=== PATIENT | female | born 1985 | race Caucasian/White ===

== ENCOUNTER 2020-12-08 06:33 | Inpatient (IN) | payer MEDICAID, SELFPAY ==
[2020-12-08] VITALS (22 sets, daily range): BP systolic 107–150; BP diastolic 50–89; PULSE 61–138; RESP 16; TEMP 36.4–36.7; O2SAT 100; BMI 34.0
--- NOTE | 2020-12-08 06:40 | PM.IMHP ---
H&P: HPI History of Present Illness Date/Time: 12/08/20 06:40 35-year-old 4 para 2 with an EDC of 712 21 presents at 40 weeks gestation for induction of labor. She had group B strep in her urine on admission and will be thus treated. The has been otherwise uncomplicated Chief Complaint: induction of labor at term with group B strep Review of Systems Review of Systems: All systems reviewed & are unremarkable except as noted in HPI and below Meds Home Medications and Allergies Allergies Allergy/AdvReac Type Severity Reaction Status Date / Time No Known Allergies Allergy Unverified 02/27/11 00:45 Exam Const: General: no acute distress Eyes: General: appearance normal, both eyes and all related structures Neck: Neck: supple and no JVD Thyroid: thyroid normal Resp: Effort & Inspection: normal respiratory effort Auscultation: clear to auscultation bilaterally Cardio: Rate: regular rate Rhythm: regular rhythm GI: Inspection: non-distended GI Palp: Yes Soft to palpation, No Tenderness to palpation present (GI) and No Guarding due to palpation present (GI) Auscultation: normal bowel sounds : External Female Exam: normal external appearance Speculum Exam - Vagina: normal appearance of the vagina Speculum Exam - Cervix: normal appearance of the cervix ( cervix 4-5 cm. heart tones are reassuring) Skin: General skin exam: no rashes or lesions noted Extrem: General: normal to inspection and no edema Psych: Mental Status: mental status grossly normal Affect: normal affect Assessment and Plan Additional Plan impression: Term with group B strep in her urine and favorable cervix Plan: Medical induction labor. Spontaneous vaginal delivery is expected. Group B strep prophylaxis will be undertaken
[2020-12-08 07:15] LABS: Basophils Percent Auto 0.4 % (0.2-1.2); Eosinophils Absolute Auto 0.1 K/mm3 (0-0.3); Eosinophils Percent Auto 0.8 % (0-4.4); Hematocrit 34.9 % (37.0-47.0); Hemoglobin 11.2 g/dL (12.0-15.0); Immature Granulocyte Absolute 0.03 K/mm3 (0.00-0.031); Immature Granulocyte Percent A 0.4 % (0-0.5); Lymphocytes Absolute Auto 1.77 K/mm3 (0.9-3.2); Lymphocytes Percent Auto 23.4 % (18.3-44.2); Mean Corpuscular HGB Conc 32.1 g/dl (32-36); Mean Corpuscular Hemoglobin 23.4 pg (26-34); Mean Corpuscular Volume 72.9 fl (80-100); Mean Platelet Volume 9.9 fl (7.4-10.4); Monocytes Absolute Auto 0.4 K/mm3 (0.1-0.6); Monocytes Percent Auto 5.4 % (2.6-8.5); Neutrophils Absolute Auto 5.3 K/mm3 (1.3-6.7); Neutrophils Percent Auto 69.6 % (45.5-73.1); Platelet Count Result 360 k/mm3 (150-375); Red Blood Count 4.79 M/mm3 (4.2-5.4); Red Cell Distribution Width 20.5 % (11.5-14.5); White Blood Count 7.6 K/mm3 (4.5-10.0)
[2020-12-08] MEDS: LACTATED RINGERS 1,000 ML 125 ML IV CONT (07:17)
[2020-12-08] MEDS: AMPICILLIN 2 GM/NS 100 ML 2 GM/100 ML BAG IVPB (07:18)
--- NOTE | 2020-12-08 07:25 | LDADM ---
This patient, Nikki Kruse, was admitted to Labor/Delivery/Recovery 103 on 12/08/20 at 06:33. Plans for labor, pain management and were discussed with patient. Patient/family oriented to hospital policies and general routines including ID bracelet, bed and alarms, visiting hours, pain management, procedures, bathroom and other care routines, personal items, smoking policy, room service/diet and guest tray routines, security routines, and visiting hours. Patient/Family are encouraged to report perceived risks to care and to ask questions if they do not understand what they are told or what they should do. See OBIX for further documentation.
--- NOTE | 2020-12-08 07:55 | P.PNAN_ITS ---
Anes - Eval Pre Procedure Procedure: labor epidural Date/Time: 12/08/20 07:55 Surgeon: patrick cole Preop Diagnosis: pain during labor Pre Op Diagnosis: induction of labor Patient Data Age: 35 Gender: F Height: 1.6 m Weight: 87 kg Allergies Allergy/AdvReac Type Severity Reaction Status Date / Time No Known Allergies Allergy Unverified 02/27/11 00:45 Laboratory Tests 12/08/20 12/08/20 07:07 07:07 WBC 7.6 K/mm3 K/mm3 (4.5-10.0) RBC 4.79 M/mm3 M/mm3 (4.2-5.4) Hgb 11.2 g/dL L g/dL (12.0-15.0) Hct 34.9 % L % (37.0-47.0) MCV 72.9 fl L fl (80-100) MCH 23.4 pg L pg (26-34) MCHC 32.1 g/dl g/dl (32-36) RDW 20.5 % H % (11.5-14.5) Plt Count 360 k/mm3 k/mm3 (150-375) MPV 9.9 fl fl (7.4-10.4) Immature Gran % (Auto) 0.4 % % (0-0.5) Neut % (Auto) 69.6 % % (45.5-73.1) Lymph % (Auto) 23.4 % % (18.3-44.2) [place] % (Auto) 5.4 % % (2.6-8.5) Eos % (Auto) 0.8 % % (0-4.4) Baso % (Auto) 0.4 % % (0.2-1.2) Lymph # (Auto) 1.77 K/mm3 K/mm3 (0.9-3.2) [place] # (Auto) 0.4 K/mm3 K/mm3 (0.1-0.6) Eos # (Auto) 0.1 K/mm3 K/mm3 (0-0.3) Baso # (Auto) 0.0 K/mm3 K/mm3 (0.0-0.1) Abs Immat Gran (auto) 0.03 K/mm3 K/mm3 (0.00-0.031) Absolute Neuts (auto) 5.3 K/mm3 K/mm3 (1.3-6.7) Absolute Nucleated RBC 0.0 K/mm3 K/mm3 (0.0-0.012) Nucleated RBC % 0.0 % % (0.0-0.2) RPR Pending Patient hx anesthesia problems: none Family hx anesthesia problems: none PMFSH Social History Social History Smoking status: Never smoker Substance use: never Gender identity (if verbalized by the patient): Female Sexual Orientation (if Verbalized by the Patient): Straight or Heterosexual Spiritual care concerns: No Exam Day of Procedure 12/08/20 07:55
--- NOTE | 2020-12-08 09:55 | PM.OBPRVD ---
OB - Delivery Note Procedure Delivery date: 12/08/20 Procedure: mil/gbs proph Intrapartal events: None Induction method: AROM Delivery monitor: external FHT Route of delivery: Episiotomy description: None Laceration Description: None Specimen: No Quantitative Blood Loss (ml): 58 Disposition: floor Narrative: gbs rx x 1 Baby Date of : 12/08/20 Time of : 09:48 Weeks of gestation at delivery: 40 Infant gender: Male presentation: vertex position: Right Occiput Anterior Placenta delivery description: Spontaneous cord vessel description: 3 Vessels score one minute: 9 score five minutes: 9
[2020-12-08] MEDS: OXYTOCIN 30 UNITS/NS 500 ML 30 UNITS/500 ML BAG IV CONT (10:01)
[2020-12-08 10:05] LABS: Rapid Plasma Reagin Non-Reactive (NonReactive)
[2020-12-08] MEDS: BENZOCAINE 20% AER SPR (*SP) 56 GM CAN 1 SPRAY TOPICAL (12:00)
[2020-12-08] MEDS: WITCH HAZEL 40 PADS 1 PAD TOPICAL (12:00)
[2020-12-08] MEDS: IBUPROFEN 600 MG TABLET PO ×2 (12:03→19:55)
--- NOTE | 2020-12-08 13:45 | PC.NURSE ---
Mother called out for assist with feeding, reporting is sleepy and spitty. This is mother's 3rd child to breast feeding. is able to freely thrust tongue past gum ridge, both lips flange easily. Skin is intact on both nipples, no redness and bruising noted. Reviewed infant feeding cues, frequencies, duration of feedings, feeding elimination flow sheet, and signs of adequate intake. Demonstrated stimulation techniques to wake for feeding. Assisted with to breast. Reviewed positioning/alignment in cross cradle, holding breast in ?U? hold and guided asymmetrical latch on. Infant able to latch correctly. nursed eagerly, with steady draws and occasional swallowing for bursts followed with pausing. Suggested mother stimulate while feeding to increase stimulate, increase intake and to assist with maintaining deep latch. Reviewed signs of a correct latch, effective nursing and suck swallow ratio. Infant would slip to shallow latch, mother reports tenderness. Demonstrated how to adjust latch more deeply while feeding. Mother reports she can feel change in latch and has no tenderness. Nipple care reviewed of lanolin after feedings, warm compresses as needed. Instructed mother to call out for RN assistance if she is unable to latch infant for feeding or she has discomfort with nursing.
[2020-12-09 03:05] VITALS: BP 127/68; PULSE 72; RESP 16; TEMP 36.6
[2020-12-09] MEDS: IBUPROFEN 600 MG TABLET PO ×2 (03:15→16:25)
[2020-12-09 05:49] LABS: Hematocrit 32.4 % (37.0-47.0); Hemoglobin 10.1 g/dL (12.0-15.0)
--- NOTE | 2020-12-09 07:23 | PM.OBPNVD ---
OB - PN: Subj Subjective Date/time seen: 12/09/20 07:23 Patient comments: no complaints and pain well controlled baby status: doing well OB - PN: Obj Data Labs CBC & Chem 7: 12/09/20 03:20 Labs: Laboratory Results - last 24 hr 12/08/20 12/08/20 12/08/20 07:07 07:07 07:07 WBC 7.6 RBC 4.79 Hgb 11.2 L Hct 34.9 L MCV 72.9 L MCH 23.4 L MCHC 32.1 RDW 20.5 H Plt Count 360 MPV 9.9 Immature Gran % (Auto) 0.4 Neut % (Auto) 69.6 Lymph % (Auto) 23.4 [place] % (Auto) 5.4 Eos % (Auto) 0.8 Baso % (Auto) 0.4 Lymph # (Auto) 1.77 [place] # (Auto) 0.4 Eos # (Auto) 0.1 Baso # (Auto) 0.0 Abs Immat Gran (auto) 0.03 Absolute Neuts (auto) 5.3 Absolute Nucleated RBC 0.0 Nucleated RBC % 0.0 RPR Non-reactive Blood Type B Positive Antibody Screen Negative 12/09/20 03:20 WBC RBC Hgb 10.1 L Hct 32.4 L MCV MCH MCHC RDW Plt Count MPV Immature Gran % (Auto) Neut % (Auto) Lymph % (Auto) [place] % (Auto) Eos % (Auto) Baso % (Auto) Lymph # (Auto) [place] # (Auto) Eos # (Auto) Baso # (Auto) Abs Immat Gran (auto) Absolute Neuts (auto) Absolute Nucleated RBC Nucleated RBC % RPR Blood Type Antibody Screen OB - PN A/P Plan day: 1 Plan: routine care Time Spent With Patient Time: Total time spent is greater than 50% in coordination of care (as documented) at patient's floor/unit and/or counseling patient: Time with patient: less than 15 minutes Review of Systems Review of Systems: All systems reviewed & are unremarkable except as noted in HPI and below Exam Const: General: no acute distress Eyes: General: appearance normal, both eyes and all related structures Neck: Neck: supple and no JVD Thyroid: thyroid normal Resp: Effort & Inspection: normal respiratory effort Auscultation: clear to auscultation bilaterally Cardio: Rate: regular rate Rhythm: regular rhythm GI: Inspection: non-distended GI Palp: Yes Soft to palpation, No Tenderness to palpation present (GI) and No Guarding due to palpation present (GI) Auscultation: normal bowel sounds : General: Yes bladder normal to palpation External Female Exam: normal external appearance Speculum Exam - Vagina: normal vaginal discharge and No vaginal bleeding Speculum Exam - Cervix: nontender Bimanual exam- vagina & uterus: bladder normal to palpation and No Cervical tenderness present OB/external & speculum: No vaginal bleeding Skin: General skin exam: no rashes or lesions noted Extrem: General: normal to inspection and no edema Psych: Mental Status: mental status grossly normal Affect: normal affect
[2020-12-09 08:20] VITALS: BP 114/74; PULSE 76; RESP 16; TEMP 36.8; O2SAT 99
--- NOTE | 2020-12-09 09:00 | PC.NURSE ---
Consult with pt., mother mother reports infant is eagerly latching without difficulties or discomfort. She is feeding as required and waking infant to feed if needed. is currently meeting outcomes for weight, output, jaundice and feeding frequencies. Requested mother call out for assist as needed.
[2020-12-09 09:30] VITALS: PULSE 76; RESP 16; O2SAT 99
[2020-12-09] MEDS: DOCUSATE SODIUM 100 MG CAPSULE PO ×2 (11:34→16:25)
[2020-12-09] MEDS: TETANUS,DIPHTHERIA,AC PERTUSSIS ADULT (0.5 ML) BOOSTRIX IM (11:36)
[2020-12-09] MEDS: MULTIVIT/MIN/PREN/FOL AC/IRON TABLET 1 TAB PO (11:36)
[2020-12-09 19:35] VITALS: BP 112/64; PULSE 65; RESP 16; TEMP 36.8
--- NOTE | 2020-12-10 06:12 | PM.DS ---
DS: Admitting Diagnosis Admitting Diagnosis Admitting Diagnosis: term iup/gbs DS: Summary Hospital Course Hospital Course: The patient was admitted for induction of labor. She was term with advanced cervical dilatation and positive group B strep. She received 1 dose of group B strep prophylaxis. She underwent spontaneous vaginal delivery which was unremarkable. Her hospital course was unremarkable. For 48 hours stay she remained afebrile. She was up, walking, generally without complaints. Time Spent with Patient Time attestation: Total time spent providing and/or coordinating discharge services: Exam Const: General: no acute distress Eyes: General: appearance normal, both eyes and all related structures Neck: Neck: supple and no JVD Thyroid: thyroid normal Resp: Effort & Inspection: normal respiratory effort Auscultation: clear to auscultation bilaterally Cardio: Rate: regular rate Rhythm: regular rhythm GI: Inspection: non-distended GI Palp: Yes Soft to palpation, No Tenderness to palpation present (GI) and No Guarding due to palpation present (GI) Auscultation: normal bowel sounds : General: Yes bladder normal to palpation External Female Exam: normal external appearance Speculum Exam - Vagina: normal vaginal discharge and No vaginal bleeding Speculum Exam - Cervix: nontender Bimanual exam- vagina & uterus: bladder normal to palpation and No Cervical tenderness present OB/external & speculum: No vaginal bleeding Skin: General skin exam: no rashes or lesions noted Extrem: General: normal to inspection and no edema Psych: Mental Status: mental status grossly normal Affect: normal affect Discharge Plan Discharge Attending physician on discharge: Mathew Ponce Discharging Clinician: Mtahew Ponce Patient Disposition: Home, Self-Care Activity: may shower, no straining and pelvic rest Diet: heart healthy Wound Care Instructions: follow printed instructions Patient Instructions: Antibiotic Form Stand Alone Forms: General Discharge Information Follow-up/Referrals: Mathew Ponce MD [Physician] - Discharge Medications: Continued PNV [id number] [] 28 mg iron- 800 mcg Tablet 1 tablet PO DAILY RF: 0 Iron (ferrous sulfate) 325 mg PO DAILY RF: 0 Date of admission: 12/08/20 06:33 Primary Care Provider: PHYSICIAN[employer] Admitting Provider: Mathew Ponce Attending physician on admission: Mathew Ponce Condition: Stable
--- NOTE | 2020-12-10 06:15 | PM.OBPNVD ---
OB - PN: Subj Subjective Date/time seen: 12/10/20 06:15 Patient comments: no complaints and pain well controlled baby status: doing well and nursing well OB - PN: Obj Data Labs CBC & Chem 7: 12/09/20 03:20 OB - PN A/P Plan day: 2 Plan: routine care, discharge home and follow up 6 weeks Time Spent With Patient Time: Total time spent is greater than 50% in coordination of care (as documented) at patient's floor/unit and/or counseling patient: Time with patient: less than 15 minutes Review of Systems Review of Systems: All systems reviewed & are unremarkable except as noted in HPI and below Exam Const: General: no acute distress Eyes: General: appearance normal, both eyes and all related structures Neck: Neck: supple and no JVD Thyroid: thyroid normal Resp: Effort & Inspection: normal respiratory effort Auscultation: clear to auscultation bilaterally Cardio: Rate: regular rate Rhythm: regular rhythm GI: Inspection: non-distended GI Palp: Yes Soft to palpation, No Tenderness to palpation present (GI) and No Guarding due to palpation present (GI) Auscultation: normal bowel sounds : General: Yes bladder normal to palpation External Female Exam: normal external appearance Speculum Exam - Vagina: normal vaginal discharge and No vaginal bleeding Speculum Exam - Cervix: nontender Bimanual exam- vagina & uterus: bladder normal to palpation and No Cervical tenderness present OB/external & speculum: No vaginal bleeding Skin: General skin exam: no rashes or lesions noted Extrem: General: normal to inspection and no edema Psych: Mental Status: mental status grossly normal Affect: normal affect
[2020-12-10 07:35] VITALS: BP 125/82; PULSE 71; RESP 16; TEMP 36.8; O2SAT 100
[2020-12-10 08:00] VITALS: PULSE 71; RESP 16; O2SAT 100
--- NOTE | 2020-12-10 09:00 | PC.NURSE ---
Mother is able to independently latch infant with appropriate positioning/alignment. She denies any nipple discomfort, is feeding as required and waking to feed if needed. has had at least 8 effective feedings in the past 24 hours, and is currently meeting outcomes for weight, output, jaundice and feeding frequencies. Mother states she feels confident to continue effective at home. Reviewed transition to breast milk, signs of adequate intake, and engorgement/relief. Instructed to call ICP if intake/output less than required. Reviewed regular medications mother is taking. Information provided per Nataly. Reviewed community resources on the [facility] website and in the Mom/Baby guide. Information on outpatient services provided. Mother has no further questions at this time.
[2020-12-11 08:22] VITALS: BP 130/84; PULSE 78; RESP 20; TEMP 37; O2SAT 100
== END 2020-12-10 12:34 | disposition home or self-care (01) | DRG 560 ==
LOC: ANHLDR 06:38 → ANHOB2 12:48
PROVIDERS: Admitting Provider Obstetrics & Gynecology; Visit Provider Obstetrics & Gynecology
DX: O99.824 Streptococcus B carrier state complicating childbirth (principal); Z37.0 Single live birth; Z3A.40 40 weeks gestation of pregnancy
CPT/HCPCS: 36415; 85014; 85018; 85025; 86592; 86850; 86900; 86901; 90715; A9270; J0290; J2590; J7120